=== PATIENT | female | born 1985 ===

== ENCOUNTER → 2017-09-05 | Outpatient (CLI) | payer OTHER ==
[~2017-09-05] MED LIST: KET10 PO; LOR5/325 PO; METF-410 PO; MULT-1187 PO; ONDA4TAB PO; OXYC1TAB54 PO; PNV1TABL92 PO; TAMS0.4C25 PO
== END ==
LOC: LAB 08:21
PROVIDERS: ATTEND Emergency Medicine
DX: Z00.00 Encounter for general adult medical examination without abnormal findings (principal); Z13.220 Encounter for screening for lipoid disorders; Z13.1 Encounter for screening for diabetes mellitus
CPT/HCPCS: 36415; 99001